=== PATIENT | female | born 1950 | race Two or more races ===

== ENCOUNTER 2020-12-18 12:32 | Day surgery (SDC) | payer MEDICARE, OTHER ==
[~2020-12-18] VITALS: Ht 162.6 cm; Wt 76.7 kg
[2020-12-18 12:58] VITALS: BP 151/63
[2020-12-18 13:10] LABS: BASOPHILS # (AUTO) 0.1 K/uL (0.0-0.2); HEMATOCRIT 43 % (33-45); RED BLOOD CELL COUNT(AUTO) 5.13 MIL/uL (4.0-5.2); WHITE BLOOD COUNT (AUTO) 5.4 K/uL (4.3-11.0)
[2020-12-18 13:13] LABS: BASOPHILS % (AUTO) 1.1 % (0.0-2.0); EOSINOPHILS % (AUTO) 2.3 % (0.0-6.0); HEMOGLOBIN 14.4 g/dL (11.5-14.8); LYMPHOCYTES # (AUTO) 1.2 K/uL (0.8-4.8); LYMPHOCYTES % (AUTO) 23.3 % (20.0-44.0); MEAN CORPUSCULAR HGB CONC 33 g/dl (31.0-36.0); MEAN CORPUSCULAR VOLUME 84 fL (82-100); MONOCYTES # (AUTO) 0.4 K/uL (0.1-1.30); MONOCYTES % (AUTO) 6.8 % (2.0-12.0); NEUTROPHILS # (AUTO) 3.6 K/uL (1.8-8.9); NEUTROPHILS % (AUTO) 66.5 % (43.0-81.0); PLATELET COUNT (AUTO) 241 K/uL (150-450)
[2020-12-18 13:16] LABS: CALCIUM, SERUM 9.2 mg/dL (8.5-10.1); CREATININE 0.8 mg/dL (0.6-1.3); POTASSIUM 3.9 mmol/L (3.5-5.1)
[2020-12-18] MEDS ORDERED: LEVO137T24 PO (13:24)
[2020-12-18] MEDS ORDERED: OLAN2.5T3 PO (13:24)
[2020-12-18] MEDS ORDERED: ASPI-1169 PO (13:24)
[2020-12-18] MEDS ORDERED: FERR325T23 PO (13:24)
[2020-12-18] MEDS ORDERED: LOSA50TA39 PO (13:24)
[2020-12-18] MEDS ORDERED: IV NS 0.9% 1,000 ML ONE (13:29)
[2020-12-18] MEDS ORDERED: IODIXANOL 0 ML IV ONE (13:29)
[2020-12-18] MEDS ORDERED: NITROGLYCERIN IN 5 % DEXTROSE 250 ML IV ONE (13:30)
[2020-12-18] MEDS ORDERED: LIDOCAINE HCL/MPF 1% 30 ML VIAL IJ ONE (13:30)
[2020-12-18] MEDS ORDERED: MIDAZOLAM HCL 2 MG/2ML VIAL ONE (13:34)
[2020-12-18] MEDS ORDERED: FENTANYL PF 100MCG/2ML AMPUL ONE (13:34)
[2020-12-18] MEDS ORDERED: ZOLP5TAB2 PO (13:50)
[2020-12-18] MEDS ORDERED: OMEP40CA21 PO (13:50)
--- NOTE | 2020-12-18 13:52 | NUR ---
RN NOTES: Admitted patient for left heart heart procedure,patient is alert and oriented x4, Patient denies pain or discomfort at this time, explained the risk and benefits of the procedure and patient verbalizes understanding and signed consent.
[2020-12-18 14:01] LABS: ALBUMIN 4.3 g/dL (3.4-5.0); BILIRUBIN,DIRECT 0.1 mg/dL (0.0-0.2); BILIRUBIN,TOTAL 0.6 mg/dL (0.2-1.0)
[2020-12-18 14:27] VITALS: BP 124/57
--- NOTE | 2020-12-18 14:33 | NUR ---
RN NOTES: Post left heart cath, patient able to tolerate the procedure, no distress noted, transferred to cath lab technologist recovery, TR band intact and ordered to discharge patient home once TR band removed and patient is stable.
[2020-12-18 14:47] VITALS: BP 146/57
[2020-12-18 15:31] VITALS: BP 145/71
--- NOTE | 2020-12-18 16:00 | NUR ---
RN NOTES: TR band removed per protocol,patient able to tolerate no bleeding note. Covered with dry dressing.
--- NOTE | 2020-12-18 16:11 | NUR ---
RN NOTES: Discharge patient to home, discharge instruction given to patient and verbalizes understanding. IV line removed.
[2020-12-18 16:12] VITALS: BP 138/67
--- NOTE | 2020-12-18 16:18 | NUR ---
Patient left the hospital in stable condition accompanied by family.
== END 2020-12-18 16:09 | disposition home or self-care (01) ==
LOC: CATHLAB 12:32
PROVIDERS: ATTEND Internal Medicine
DX: R06.02 Shortness of breath (principal); I10 Essential (primary) hypertension; E78.5 Hyperlipidemia, unspecified; I42.8 Other cardiomyopathies; Z79.82 Long term (current) use of aspirin; Z79.899 Other long term (current) drug therapy; Z20.822 Contact with and (suspected) exposure to COVID-19; Z98.890 Other specified postprocedural states
CPT/HCPCS: 36415; 80048; 80076; 85025; 85610; 87426; 93005; 93458; 99152; C1887; C9803; J1644; J2250; J3010; J3490; J7030; G0500; Q9967